=== PATIENT | female | born 1945 | race Caucasian/White ===

== ENCOUNTER 2022-05-02 08:20 | Day surgery (SDC) | payer MEDICARE ==
[2022-05-02] VITALS (11 sets, daily range): BP systolic 130–162; BP diastolic 61–82
[~2022-05-02] VITALS: Ht 175.3 cm; Wt 83.5 kg
[2022-05-02] MEDS ORDERED: normal saline 1000ml 1,000 ML IV PRN (08:45)
[2022-05-02] MEDS ORDERED: RESV1CAP PO (09:01)
[2022-05-02] MEDS ORDERED: IBUP-1984 PO (09:01)
[2022-05-02] MEDS ORDERED: BIOT1TAB16 PO (09:01)
[2022-05-02] MEDS ORDERED: ACET-1008 PO (09:01)
[2022-05-02] MEDS ORDERED: OXYC-658 PO (09:01)
[2022-05-02] MEDS ORDERED: berberine PEG (09:01)
[2022-05-02] MEDS ORDERED: calcium/mag/zinc PO (09:01)
[2022-05-02] MEDS ORDERED: GLUC-95 PO (09:01)
[2022-05-02] MEDS ORDERED: LUTE1CAP PO (09:01)
[2022-05-02] MEDS ORDERED: MILK175T PO (09:01)
[2022-05-02] MEDS ORDERED: ASCO500C18 PO (09:01)
[2022-05-02] MEDS ORDERED: MULT-1085 PO (09:01)
[2022-05-02] MEDS ORDERED: UBID50TA3 PO (09:01)
[2022-05-02] MEDS ORDERED: ASPI-1265 PO (09:08)
[2022-05-02 10:07] LABS: BASOPHILS % (AUTO) 0.8 % (0-1); EOSINOPHILS # (AUTO) 0.1 X10'3 (0-0.9); HEMATOCRIT 43.7 % (35.0-45.0); LYMPHOCYTES # (AUTO) 1.4 X10'3 (1.1-4.8); LYMPHOCYTES % (AUTO) 28.6 % (21-51); MEAN CORPUSCULAR HEMOGLOBIN 32.6 PG (27.0-31.0); MEAN CORPUSCULAR HGB CONC 34.4 g/dL (33.0-36.5); MEAN CORPUSCULAR VOLUME 94.9 FL (78-98); MEAN PLATELET VOLUME 8.1 FL (7.4-10.4); MONOCYTES # (AUTO) 0.4 X10'3 (0-0.9); MONOCYTES % (AUTO) 7.2 % (2-12); NEUTROPHILS % (AUTO) 60.4 % (42-75); PLATELET COUNT 219 X10'3 (140-440); RED CELL DISTRIBUTION WIDTH 13.3 % (11.5-14.5); WHITE BLOOD COUNT 4.9 X10'3 (4.5-11.0)
[2022-05-02] MEDS ORDERED: oxyCODONE IR 5mg (immed. release) tablet PO PRN (11:00)
[2022-05-02] MEDS ORDERED: LIDOcaine 1% (10mg/ml) 2ml vial ONE (11:12)
[2022-05-02] MEDS ORDERED: fentaNYL/PF 50MCG/1 ML 2ML syringe ONE (11:12)
[2022-05-02] MEDS ORDERED: midazolam 1 mg/ML 2ml injection ONE (11:12)
== END 2022-05-02 13:15 | disposition home or self-care (01) ==
LOC: SSTAY O 08:20
PROVIDERS: ATTEND Radiology Vascular & Interventional Radiology
DX: M89.8X8 Other specified disorders of bone, other site (principal); C79.51 Secondary malignant neoplasm of bone; C50.119 Malignant neoplasm of central portion of unspecified female breast; I10 Essential (primary) hypertension; E11.9 Type 2 diabetes mellitus without complications; Z79.899 Other long term (current) drug therapy; Z79.82 Long term (current) use of aspirin
CPT/HCPCS: 20220; 36415; 77012; 82948; 85025; 88307; 88341; 88342; J2250; J3010; J3490; J7030; 27040; 49180; 99152; 99153; A4615